=== PATIENT | male | born 1985 | race Caucasian/White ===

== ENCOUNTER 2018-03-21 13:31 | Emergency (ER) | payer BC, MEDICARE, MEDICAID ==
--- OUTSIDE RECORDS SUMMARY | 2018-03-21 13:48 | XMS REPORT ---
:1985 External Reference #:[id number] Author Organization [facility] Address [address] [place] [address] Phone [phone] Care Team Providers Name Role Phone Migue Calderon MD Care Team Information Online Education Manager Unavailable Migue Calderon MD Primary Care Physician Unavailable Payers Type Date Identification Numbers Payment Provider Subscriber Commercial Effective: Policy Number: [place] Plan Juanito Brown Jean Carlos 2003 [id number] PayID: [id number] [address] [place] [address] Medigap Part B Effective: Policy Number: Medicare Juanito Moore 2013 [id number] [facility] Jean Carlos PayID: [id number] [address] [place] [address] Medicaid Effective: 2011 Policy Number: Medicaid [place] Juanito Evangelista [id number] Group Name: Medicaid [address] PayID: [id number] [facility] [place] [address] Problems Date Description Provider Status Onset: 12/11/2010 Cerebral degeneration Migue Calderon M.D. Active Onset: 08/04/2011 Acute bronchitis Cha Aguero M.D. Active Onset: 08/04/2011 Impacted cerumen Cha Aguero M.D. Active Onset: 08/04/2011 Flatulence, eructation and gas Cha Aguero M.D. Active pain Onset: 12/08/2011 Gastroesophageal reflux disease Migue Calderon M.D. Active Onset: 05/15/2013 Carbuncle of face Robert Wilson M.D. Active Onset: 12/08/2013 Congenital anomaly of stomach Migue Calderon M.D. Active Onset: 10/06/2014 Achalasia of esophagus Migue Calderon M.D. Active Onset: 04/21/2014 Inguinal hernia without Migue Calderon M.D. Active obstruction AND without gangrene Family History Date Family Member(s) Problem(s) Comments Father Hypertension Social History Type Date Description Comments Living Situation Lives in an assisted living facility Cigarette Use Never Smoked Cigarettes Allergies, Adverse Reactions, Alerts Date Description Reaction Status Severity Comments 10/31/2010 NKDA active Medications Medication Date Status Form Strength Qnty SIG Indications Ordering Provider Miralax 01/25 Active Powder 527gm 527un dissolve its (10cc) in Shallish, 8 oz of M.D. fluid drink with breakfast daily constipati on Fleet Enema 12/14 Active Enema 7-19GM/11 690ml Use one Elana C. 8ML enema robert Suh per CRAB BUTCHER rectum; repeat dose in 2 days and 4 days Prilosec OTC 08/[address] 20mg 30tab Take One Josh T. s Capsule By Jennie villalobos MD before breakfast. Glycerin Adult 09/11 Active Suppository 2gm 30uni 1 rectally ts prn for Shallish, constipati M.D. on Lanolin Hpa 09/01 Active 40uni Apply To ts Lips After Shallish, Breakfast M.D. And AT Mid Morning, After Lunch,Afte r Nap, Mid Afternoon, And After Dinner(May Kept By Bedside) Valtrex 05/10 Active Tablets 500mg 14tab 1 po bid Migue s for 7 days Shallish, M.D. Acetaminophen 05/04 Active Solution 160mg/5ML 1unit 2 tsp po s q4h prn Shallish, fever , M.D. pain Benadryl 1% Cre 02/10 Active 30uni Apply To ts Affected [facility] Area 3 M.D. Times A Day as Needed (Itching) Robitussin DM Active 473un 10MLS By Migue F. Syp 480ML /2015 its Mouth Shallish, Every 4 M.D. Hours as Needed For Cough Sudafed 12 Hour Active Tablets ER 120mg 30tab Take 1 Migue F. 12HR s tablet by Yumiko, mouth M.D. every 12 hours as needed for stuffy nose Ibuprofen Active Tablets 400mg 60tab take 1 Elana C. s tablet by xiao Suh CRAB BUTCHER every 6 hours as needed for fever or pain Simethicone 07/07 Active Capsules 180mg 90cap Take One Josh T. s Capsule By Jennie Salvador 3 d, MD Times A Day Before First Bite Of Meals (20 Cells Day Card) (Gas) Fleet Liquid 04/10 Active Enema 5.4GM/Dos 240un one Migue F. Glycerin e its rectally Shallish, Suppositories every day M.D. as needed (hold if juanito has had a bowel movement during the day or diarrhea or illness) Certa-Brigida Active Liquid 1080m daily Migue F. / l Richard Calderon Bacitracin Active Ointment 500Unit/G apply to Unknown (External) /0000 M cut twice daily until healed. Centrum 10/31 Hx Tablets 100ta 1 by mouth Myrna Haque /2017 bs daily Maryellen Walton M.D. 03/18 Azithromycin 05/04 Hx Suspension 200mg/5ML 40cc 2.5 Migue Rec teaspoon Yumiko, - by mouth x M.D. 02/18 1d, 1.25 teaspoon by mouth for 4 days Azithromycin 05/03 Hx Tablets 250mg 6tabs take 2 tablets by Yumiko, - mouth on M.D. 02/18 day 1 1 tablet on days 2 through 5 Note 01/14 Hx may crush Judy pills due Shirley, - to Afnp-C 05/06 difficulty swallowing Valtrex 01/11 Hx Tablets 500mg 14tab 1 po bid Migue s for 7 days Yumiko - M.DAmanda 01/24 Note 12/06 Hx pt takes Migue F Resource Yumiko, - Sun,Sun,Fr M.D. 05/06 i at 7 and Magic Cup Natacha Harman,S at and Sun at 7pm Miralax 10/29 Hx Powder 527GM 527un dissolve Migue F. its (10cc) in Yumiko, - 8 oz of M.D. 01/25 drink with breakfast daily constipati on Valtrex Hx Tablets 500mg 14tab 1 po bid Migue F. s for 7 days Yumiko, - M.D. 05/17 Robitussin DM Hx Syrup 100-10mg/ 118ml 2 tsp po Migue F. 5ML q4h prn Yumiko, - M.D. 05/06 Pseudoephedrine Hx 30uni Take One Migue F. 30MG ts Tablet By Yumiko, - Mouth M.D. 05/06 Every Hours as Needed For Cold Symptoms Valtrex 10/06 Hx Tablets 500mg 10tab 1 po bid Migue F. s for 5 days Yumiko, - M.D. 10/16 Benadryl Itch 07/15 Hx Cream 1-0.1% 1tube apply to Nara affected Curtis, - area three M.D. 05/06 times day as needed Valacyclovir HCL 06/15 Hx Tablets 500mg 8tabs take 2 Austin tablets by Puneet, - mouth two M.D. 06/17 times day for 2 days as needed for cold sore Note 04/25 Hx discontinu Migue F. e Lotrimin Yumiko, - M.D. 05/02 Resource 2.0 04/17 Hx Liquid 4Case as needed R63.4 Migue F. /2014 s to Yumiko, - supplement M.D. 05/06 G31.9 Simethicone 04/06/2014 Hx Suspension 40mg/0.6ML 30ml .6 by mouth Migue F. - after meals as Yumiko, 07/07/2014 needed M.D. discontinue Mylicon 02/03/2014 Hx Suspension 40mg/0.6ML 1Bott .6ml by mouth Migue F. - le after meals as Yumiko, 04/06/2014 needed M.D. Acetaminophen-Co 01/15/2014 Hx Tablets 300-30mg 120ta 1 by mouth Migue valenzuela #3 - bs every 4 hours [facility], 08/24/2014 M.D. Metoclopramide 01/03/2014 Hx Solution 10mg/10ML qid Nara HCL - Curtis, 08/24/2014 M.D. Prilosec 01/03/[address] 40mg 30cap Take One Migue F. - s Capsule By [facility], 05/06/2017 Mouth With M.D. Breakfast (GERD/Acid) Note 12/18/2013 Hx Physical Migue F. - assessment [facility], 05/02/2014 needed and M.D. management clinic to be assessed for a new seating system Erythromycin 12/12/[address] Harvey 250mg Discontinue Migue F. Base - [facility], 12/25/2013 M.D. Mylanta Gas 11/28/2013 Hx Capsules 125mg 2 po tid Migue F. Relief Maximum - [facility], Strength 08/24/2014 M.D. Orders 11/28/2013 Hx Reposition Migue F. - patient q1hr [facility], 05/02/2014 between 8am and M.D. 8pm Mylanta 2 tabs or 1 oz of the liquid Mylanta tid Ibuprophen 400mg tid Note 11/27/2013 Hx use fleet enema Migue F. - only prn - pt [facility], 05/06/2017 needs to have M.D. bowel movement at least q2days Mineral Oil 11/24/2013 Hx Oil 500ml 30cc daily Migue F. Heavy - [facility], 05/02/2014 M.D. Fleet Enema 11/20/2013 Hx Enema 7-19GM/118M 3unit 1 per day for Migue F. - L s next 3 days [facility], 05/06/2017 M.D. High Calorie 11/13/2013 Hx Migue F. Supplement - [facility], 05/02/2014 M.D. Tramadol HCL 11/11/2013 Hx Tablets 50mg 40tab 1 po q6h prn, Migue F. - s and 1 po with [facility], 08/24/2014 evening M.D. medication Omeprazole 11/11/[address] 40mg 30cap 1 po qd Migue F. - s [facility], 12/08/2013 M.D. Pseudoephedrine 10/18/2013 Hx 30uni Take One Tablet Migue F. 30MG Tab - ts By Mouth [facility], 10/16/2014 4 Hours as M.D. Needed For Cold Symptoms Orajel 10% 10/18/2013 Hx Gel 7.0GM 7unit Apply To Lower Migue F. - s Right [place] [facility], 05/02/2014 Tooth as Needed M.D. Robitussin DM 10/18/2013 Hx 473un 10MLS By Mouth Migue F. Syp 480ML - its Every 4 Hours [facility], 10/16/2014 as Needed For M.D. Cough Without Fever Lamisil At 10/18/2013 Hx Cream 1% 30uni Apply To Web Migue F. - ts Spaces Of Feet [facility], 05/06/2017 as Needed For M.D. Redness After Bath (Antifungal) Acetaminophen/Co 08/25/2013 Hx Solution 120-12mg/5M 118ml Take 10 ml by Ada Gastelum mouth every 4 Isaac, 11/11/2013 hours as needed QUARTZ MINER for pain Physical Therapy 07/27/2013 Hx treatment and Migue F. - evaluation [facility], 11/11/2013 cerebral M.D. palsey, leg spasticity Afo Braces 07/09/2013 Hx needs repair Migue F. - [facility], 05/02/2014 M.D. Mupirocin 05/15/2013 Hx Cream 2% 30gm apply tid to 6 Robert T. - affected area 8 [place], 12/08/2013 until clear 0 M.D. . 0 Sulfamethoxazole 05/02/2013 Hx Tablets 800-160mg 20tab 1 po bid x 10 6 Janette /Trimethoprim DS - s days 8 Manish, 05/12/2013 0 Afnp-C . 0 Lanolin 03/26/2013 Hx Ointment 1unit apply to lips Migue F. - s daily as needed [facility], 12/08/2013 M.D. Note 09/16/2012 Hx physical Migue F. - therapy Yumiko, 10/11/2012 assessment M.D. Note 09/16/2012 Hx physical Migue F. - therapy [facility], 10/11/2012 assessment for M.D. evaluation of new wheelchair Orabase-B 06/07/2012 Hx Paste 20% Migue Mendez - [facility], 07/04/2013 M.Abbe Triamcinolone In 06/07/2012 Hx Paste 0.1% 5gm apply tid until Migue FAmanda Orabase - lip sore is [facility], 05/06/2017 healed M.DAmanda Acetaminophen/Co 02/29/2012 Hx Tablets 300-30mg 30tab 1-2 po q4h prn Migue FAmanda deine #3 - s [facility], 08/25/2013 M.D. Centrum 12/27/2011 Hx Chewtabs 30uni Take One Tablet Migue F. - ts By Mouth Every [facility], 05/06/2017 Evening With M.DAmanda Dinner-Crush Med (Supplement) Note 12/25/2011 Hx pt may received Migue F. - AFO's dx: [facility], 10/11/2012 331.9 during M.D. weight barring activites up to an hour Ranitidine HCL 12/08/2011 Hx Capsules 150mg 60cap take 1 capsule Migue F. - s by mouth twice [facility], 11/11/2013 a day M.D. Handicapped 12/06/2011 Hx requires Migue Mendez Parking - handicapped [facility], 12/08/2011 parking M.D. dx: cerebral palsey lifelong Wheelchair 12/06/2011 Hx Migue FAmanda Repairs - [facility], 12/08/2011 M.DAmanda Wheelcair Repair 08/19/2011 Hx repair Migue FAmanda - wheelchair as [facility], 12/08/2011 needed M.Abbe Orajel 08/04/2011 Hx Gel 10% 7.0gm apply prn [facility], 10/18/2013 MLuke Azithromycin 08/04/2011 Hx Tablets 250mg 6tabs 2 tabs po x 1 Cha D. - day, then 1 tab [place], 12/08/2011 po qd x 4 days M.DAmanda Debrox 08/04/2011 Hx Solution 6.5% 1bott use per nurse Migue corbett [facility], 12/08/2013 M.D. Wheelcair Repair 05/31/2011 Hx repair Austin A. - wheelchair as [place], 06/05/2011 needed M.D. Azithromycin 05/23/2011 Hx Tablets 250mg 6tabs take 2 tablets Migue F. - by mouth on day Shallish, 05/29/2011 1 then 1 tablet M.D. on days 2 through 5 Azithromycin 09/05/2010 Hx Tablets 500mg 10tab 1 po daily x 7 Myrna L. - s 10. 8 Anton, 09/05/2010 6 M.D. . 2 Azithromycin 09/05/2010 Hx Tablets 250mg 20tab 2 po x 10 day 7 Myrna L. - s 8 Anton, 10/31/2010 6 M.D. . 2 Acidophilus 09/05/2010 Hx Capsules 60cap 2 po daily 7 Myrna L. - s 8 Anton, 12/05/2010 6 M.D. . 2 Zithromax 06/06/2010 Hx Tablets 250mg 6Tabs 2 po qd today , Migue F. - then 1 po qd Shallish, 07/22/2010 times 4 M.D. Cephalexin 01/21/2010 Hx Suspension 250mg/5ML 200ml 2 tsp po bid Migue F. - Rec [facility], 01/30/2010 M.D. Bactroban 01/21/2010 Hx Ointment 2% 22gm apply Bid to Migue F. - affected area [facility], 10/16/2014 M.D. Wheelchair 11/22/2009 Hx Migue F. Assessment And - Shallish, Repair 07/22/2010 M.D. Foam Seat 11/22/2009 Hx Migue F. Cushion - [facility], 07/22/2010 M.D. Bactrim DS 08/03/2009 Hx Tablets 800-160mg 10tab 1 po bid for 5 Li M. - s days [place], 10/15/2009 M.D. Levaquin 08/02/2009 Hx Tablets 500mg 7tabs 1 po qd for 7 7 Li M. - days 8 [place], 10/15/2009 0 M.D. . 6 0 Wheelchair 02/02/2009 Hx Migue F. Assessment And - Shallish, Repair 05/03/2009 M.D. Enema Fleets 09/10/2008 Hx Enema 1unit use as directed Migue F. - s Shallish, 09/05/2010 M.D. Zithromax 05/13/2008 Hx Tablets 250mg 6Tabs 2 po qd today , Daily - then 1 po qd [place], 07/27/2008 times 4 M.D. Annual PPD 04/20/2008 Hx Migue F. - [facility], 07/22/2010 M.D. Fleets Liquid 05/16/2007 Hx Suppository 30uni 1 pr qd hold Migue F. Glycerin - ts for diarrhea or Shallish, Suppository 08/24/2014 illness or if M.D. PT has BM during the day Hydrocortisone 05/14/2007 Hx Ointment 0.1% 30gm Apply qid prn Migue F. - To Lips Until Shallish, 05/14/2007 Healed M.D. Hydrocortisone 05/14/2007 Hx Ointment 1% 30gm Apply To Lips Migue F. - qid prn Until [facility], 12/08/2013 Healed M.D. Novasource 2.0 05/10/2007 Hx Liquid 2.0 60uni 1 po bid Migue F. - ts [facility], 09/05/2010 PA # M.Yancy. [id number]. Audiology 04/16/2007 Hx evaluate for Migue F. Evaluation - hearing loss [facility], 04/22/2007 M.D. Offer Liquid 04/08/2007 Hx every 2 hours Migue F. Frequently - while awake, [facility], 07/27/2008 and at hs M.D. Fleets Glycerin 04/08/2007 Hx Supp 30uni insert 1 per Migue F. Suppository - ts rectum [facility], 04/22/2007 everyday, hold M.D. for diarrhea Repostion 04/08/2007 Hx every 2 hours Migue F. - while awake [facility], 05/03/2009 M.D. Pseudoephedrine 03/26/2007 Hx Tablets 30mg 30tab 1 tab by mouth Migue F. HCL - s q4hrs prn for Shallish, 10/18/2013 cold symptoms M.D. Sensi-Care 03/26/2007 Hx 30gm Appy To Areas Migue F. Protective - Of Skin Shallish, Barrier 08/06/2009 Breakdown M.D. W/Each Attends Change as Needed Guiatuss DM 03/26/2007 Hx Syrup 55413/5ML 480ml 10MLS By Mouth Migue F. - Q4HRS as Needed [facility], 12/08/2013 For Cough M.D. Without Fever Ibuprofen 03/26/2007 Hx Capsules 200mg 120ca 2 tabs by mouth Migue F. - ps three times a [facility], 06/16/2014 day M.D. Fleets Glycerin 03/26/2007 Hx Supp 30uni Insert 1 Per Migue F. Suppository - ts Rectum Everyday [facility], 05/15/2007 For M.D. Constipation Lamisil At 03/26/2007 Hx Cream 30Gra Apply To Web Migue F. - ms Spaces Of Feet [facility], 08/06/2009 Everyday After M.D. Bath Bacitracin Oint 03/26/2007 Hx Oint 30gm Apply To Small Migue F. - Cuts Or Wounds [facility], 05/23/2011 as Needed M.D. A & D Ointment 03/26/2007 Hx Ointment 30gm Apply as Needed Migue F. - To Dy Lips [facility], 12/08/2013 M.D. Novasource 3.0 03/26/2007 Hx 2Case 1 Can bid for Migue F. - s supplementation [facility], 05/10/2007 Prior M.D. Auth # [id number] May Give Meds 03/26/2007 Hx Migue F. Late On Weekends - [facility], 07/27/2008 M.D. Swallowing 03/26/2007 Hx Migue F. Evaluation - [facility], 04/22/2007 M.D. Tilt In Space 03/22/2007 Hx Migue F. Wheelchair - [facility], 04/22/2007 M.D. Polyethelene 02/15/2007 Hx 1Bott 1 Capful Daily Migue F. Glycol - le [facility], 07/27/2008 M.D. Tylenol 02/15/2007 Hx Tablets 325mg 100ta 2 by mouth Migue F. - bs every 6 hours [facility], 05/06/2017 as needed for M.D. fever above 100.4 Zithromax 06/19/2006 Hx Tablets 250mg 1tabs 2 po qd today , Migue F. - then 1 po qd Shallish, 12/18/2006 times 4 M.D. Dilliner Bathing 05/20/2006 Hx needs repairs- Migue F. System - Shallish, 02/15/2007 please Richard evaluate and perfrom needed repairs Bed Pads 12/21/2005 Hx 3unit large washable Migue F. - s Shallish, 02/15/2007 dx: M.D. cerebral palsy duration life Chair Pads 12/21/2005 Hx 3unit Large Washable Migue F. - s Chair Pads Shallish, 02/15/2007 DX : M.D. CP Duration: Life Disposable Under 12/21/2005 Hx 2Bags large Migue F. Pads - Shallish, 02/15/2007 dx; cp M.D. duration: life Disposable Under 12/21/2005 Hx 60uni small Migue F. Pads - ts disposoable Shallish, 02/15/2007 underpads M.D. dx: cp duration: life Prebail Diapers 09/04/2005 Hx Adult Small 192un as directed Migue F. - its Shallish, 02/15/2007 M.D. Liners 09/04/2005 Hx 200un as directed Migue F. - its Shallish, 02/15/2007 M.D. Protonix 07/24/2005 Hx Pill 40mg 60uni 1 po bid Migue F. - ts Shallish, 04/20/2008 M.D. Carafate 07/24/2005 Hx Suspension 1GM/10 ML 1200m 10 ml po tid Migue F. - l Shallish, 07/27/2008 M.DAmanda Miralax 07/24/2005 Hx Powder 527gm 17 GM In 8 Oz Family - H2o 1-2 Times Medicine 02/15/2007 Daily as Needed [facility] Constipation Lortab 07/24/2005 Hx Elixir 2.5mg;167mg 10cc PO Q 4 HRS Family - /5ML prn Medicine 02/15/2007 [facility] Omeprazole Hx Capsules DR 20mg 30cap 1 po qd Migue F. - s Shallish, 12/08/2011 M.D. Note Hx Please Give PT Migue F. - Flu Shot Shallish, 08/06/2009 Richard Acyclovir Hx Tablets 400mg take 1 tablet Unknown - by mouth two 12/08/2013 times a day x 10 days Baclofen Hx Tablets 10mg 1 by mouth Unknown - three times a 12/08/2013 day Miralax Hx Packet [id number] 1bott 17 grams every Migue F. - day as directed Yumiko 10/30/2015 Richard Medications Administered in Office Medication Date Status Form Strength Qnty SIG Indications Ordering Provider TB Intradermal Administered Injection Unknown Test 010 TB Intradermal Administered Injection Migue F. Test 008 Richard Calderon Immunizations CPT Code Status Date Vaccine Lot # [id number] Given 12/19/2017 Influenza Vac, Quadriv[place], [place] [address] Given 01/11/2016 Influenza Vac, [place]riv[place], [place] [address] Given 12/26/2014 Influenza Vac, [place]riv[place] [address] Given 12/09/2013 DO Not Use Split Influenza Virus Vaccine 72775 Given 12/08/2011 DO Not Use Split Influenza Virus Vaccine [id number] 61127 Given 12/05/2010 Pneumococcal Immunization [id number] 07325 Given 12/05/2010 DO Not Use Split Influenza Virus Vaccine [id number] 64740 Given 01/29/2009 H1N1 Immunization Intramuscular/Intranasal W Counseling 54639 Given 01/29/2009 H1N1 Virus Vaccine [id number] 25697 Given 12/31/2008 DO Not Use Split Influenza Virus Vaccine 96371 Given 12/28/2008 DO Not Use Split Influenza Virus Vaccine 95074 Given 12/30/2007 DO Not Use Split Influenza Virus Vaccine [id number] 77760 Given 10/24/2007 Tdap Tetanus, W Pertussis [id number] 70248 Given 09/15/1996 Hepatitis B Immunization, [place]-19 Years 28202 Given 10/25/1995 Hepatitis B Immunization, [place]-19 Years 91959 Given 09/17/1995 DT Immunization 96045 Given 09/17/1995 (IPV) Inactive Poliovirus Vaccine 57801 Given 09/17/1995 Varicella (Chicken Pox) Immunization 14310 Given 09/17/1995 Hepatitis B Immunization, [place]-19 Years 65982 Given 06/11/1992 (IPV) Inactive Poliovirus Vaccine 19760 Given 06/11/1992 MMR Virus Immunization 04660 Given 06/11/1992 DTP Immunization 78623 Given 11/07/1990 MMR Virus Immunization 83128 Given 11/07/1990 DTP Immunization 32581 Given 11/07/1990 (Hib) Hemoplilus Influenza B 44761 Given 1987 DTP Immunization 74590 Given 1987 (IPV) Inactive Poliovirus Vaccine 39521 Given 1987 DTP Immunization 76893 Given 1987 (IPV) Inactive Poliovirus Vaccine 70305 Given 1987 DTP Immunization Vital Signs Date Vital Result Comment 03/18/2018 BP Systolic 130 mmHg BP Diastolic 86 mmHg Heart Rate 100 /min Body Temperature 99.0 F O2 % BldC Oximetry 96 % 12/14/2017 BP Systolic 102 mmHg BP Diastolic 70 mmHg Heart Rate 68 /min Body Temperature 98.6 F Respiratory Rate 16 /min 05/07/2017 BP Systolic 100 mmHg BP Diastolic 60 mmHg Heart Rate 66 /min Body Temperature 99.1 F Height 60 inches 5'0" Weight 74.25 lb BMI (Body Mass Index) 14.5 kg/m2 02/19/2017 BP Systolic 90 mmHg BP Diastolic 50 mmHg Heart Rate 96 /min Body Temperature 97.9 F 05/03/2016 BP Systolic 110 mmHg BP Diastolic 74 mmHg Heart Rate 68 /min Body Temperature 100.4 F Respiratory Rate 20 /min Weight 75.19 lb home stated 04/26/2015 BP Systolic 116 mmHg BP Diastolic 82 mmHg Heart Rate 72 /min Respiratory Rate 20 /min Weight 76.00 lb 10/16/2014 BP Systolic 112 mmHg BP Diastolic 74 mmHg Heart Rate 92 /min Body Temperature 98.2 F Respiratory Rate 20 /min Weight 71.00 lb 10/06/2014 Heart Rate 104 /min Body Temperature 98.3 F Respiratory Rate 20 /min 08/24/2014 Heart Rate 80 /min Body Temperature 97.0 F Respiratory Rate 20 /min 04/21/2014 Heart Rate 78 /min Body Temperature 98.5 F Weight 67.00 lb 01/03/2014 Heart Rate 120 /min Body Temperature 98.8 F Respiratory Rate 16 /min 12/08/2013 BP Systolic 98 mmHg BP Diastolic 70 mmHg Heart Rate 64 /min Body Temperature 98.3 F Respiratory Rate 16 /min 11/24/2013 BP Systolic 100 mmHg BP Diastolic 72 mmHg Heart Rate 88 /min Body Temperature 98.5 F Respiratory Rate 18 /min 11/21/2013 BP Systolic 126 mmHg BP Diastolic 82 mmHg Heart Rate 88 /min Body Temperature 99.7 F Respiratory Rate 18 /min Weight 70.50 lb 11/11/2013 BP Systolic 86 mmHg BP Diastolic 56 mmHg Heart Rate 64 /min Body Temperature 97.8 F Weight 72.12 lb weighed on 10/31/16 at [facility] 08/25/2013 BP Systolic 88 mmHg BP Diastolic 56 mmHg Heart Rate 56 /min Body Temperature 98.7 F Respiratory Rate 18 /min Weight 77.25 lb 07/04/2013 BP Systolic 100 mmHg BP Diastolic 64 mmHg Body Temperature 97.5 F Weight 79.38 lb stated 05/15/2013 BP Systolic 110 mmHg BP Diastolic 60 mmHg Heart Rate 80 /min Body Temperature 97.6 F Height 60 inches 5'0" 01/03/2013 Heart Rate 94 /min Body Temperature 97.8 F Respiratory Rate 16 /min Height 60 inches 5'0" Weight 85.00 lb as of nov 2012 BMI (Body Mass Index) 16.6 kg/m2 06/07/2012 BP Systolic 100 mmHg BP Diastolic 64 mmHg Heart Rate 78 /min Body Temperature 97.2 F 12/08/2011 BP Systolic 100 mmHg BP Diastolic 60 mmHg Heart Rate 88 /min Body Temperature 98.6 F Height 60 inches 5'0" Weight 77.38 lb BMI (Body Mass Index) 15.1 kg/m2 08/04/2011 Heart Rate 78 /min Body Temperature 98.0 F Height 60 inches 5'0" Weight 75.00 lb BMI (Body Mass Index) 14.6 kg/m2 07/21/2011 Heart Rate 80 /min Body Temperature 98.3 F Respiratory Rate 18 /min Height 60 inches 5'0" Weight 77.00 lb BMI (Body Mass Index) 15.0 kg/m2 06/05/2011 BP Systolic 118 mmHg BP Diastolic 80 mmHg Heart Rate 78 /min Body Temperature 97.7 F Respiratory Rate 22 /min Height 60 inches 5'0" 05/23/2011 BP Systolic 98 mmHg BP Diastolic 60 mmHg Heart Rate 88 /min Body Temperature 99.4 F Height 60 inches 5'0" 12/05/2010 BP Systolic 94 mmHg BP Diastolic 62 mmHg Heart Rate 84 /min Height 60 inches 5'0" Weight 78.00 lb BMI (Body Mass Index) 15.2 kg/m2 10/31/2010 BP Systolic 100 mmHg BP Diastolic 70 mmHg Heart Rate 60 /min Body Temperature 97.8 F Weight 77.00 lb 09/05/2010 BP Systolic 122 mmHg BP Diastolic 68 mmHg Heart Rate 88 /min Body Temperature 97.7 F Height 60 inches 5'0" 07/22/2010 BP Systolic 102 mmHg BP Diastolic 74 mmHg Heart Rate 60 /min Body Temperature 98.0 F Height 60 inches 5'0" BMI (Body Mass Index) 191.4 kg/m2 06/06/2010 BP Systolic 96 mmHg BP Diastolic 62 mmHg Heart Rate 90 /min Body Temperature 97.9 F Height 60 inches 5'0" 01/21/2010 BP Systolic 92 mmHg BP Diastolic 60 mmHg Heart Rate 80 /min Body Temperature 97.2 F Weight 79.00 lb stated 10/15/2009 BP Systolic 90 mmHg BP Diastolic 60 mmHg Heart Rate 78 /min Body Temperature 98.4 F Height 60 inches 5'0" 08/06/2009 BP Systolic 90 mmHg BP Diastolic 60 mmHg Heart Rate 80 /min Body Temperature 98.1 F Weight 82.00 lb Per staff - done at home 08/02/2009 BP Systolic 90 mmHg BP Diastolic 50 mmHg Heart Rate 80 /min Body Temperature 100.7 F O2 % BldC Oximetry 98 % Height 60 inches 5'0" Weight 80.00 lb BMI (Body Mass Index) 15.6 kg/m2 05/03/2009 Heart Rate 76 /min Body Temperature 97.8 F 01/29/2009 BP Systolic 96 mmHg BP Diastolic 60 mmHg Heart Rate 76 /min Body Temperature 97.7 F 07/27/2008 BP Systolic 98 mmHg BP Diastolic 60 mmHg Heart Rate 72 /min Body Temperature 97.0 F Respiratory Rate 16 /min 05/13/2008 BP Systolic 100 mmHg BP Diastolic 60 mmHg Heart Rate 88 /min Body Temperature 98.5 F 04/20/2008 BP Systolic 100 mmHg BP Diastolic 70 mmHg Heart Rate 84 /min Body Temperature 98.7 F Respiratory Rate 20 /min 01/24/2008 BP Systolic 115 mmHg BP Diastolic 80 mmHg Heart Rate 72 /min Body Temperature 97.8 F Respiratory Rate 20 /min O2 % BldC Oximetry 91 % 12/30/2007 BP Systolic 104 mmHg BP Diastolic 60 mmHg Heart Rate 80 /min Body Temperature 97.4 F 03/26/2007 BP Systolic 92 mmHg BP Diastolic 60 mmHg Heart Rate 74 /min Height 60 inches 5'0" Weight 66.00 lb BMI (Body Mass Index) 12.9 kg/m2 07/24/2005 BP Systolic 84 mmHg BP Diastolic 60 mmHg Heart Rate 72 /min Weight 64.00 lb Father Held PT To Get Weight Weight Percentile <5th Results Test Date Test Result H/L Range Note CBC Electronic Fma 05/07/2017 WBC 4.1 x10^3/UL 4.0-10.0 RBC 4.73 x10^6/UL 3.93-6.00 HGB 13.8 g/dL 12.0-17.0 HCT 41 % 35-50 MCV 86.0 fL 80.0-95.0 MCH 29.2 pg 25.6-32.2 MCHC 33.9 g/dL 32.2-36.0 RDW-CV 12.2 % 11.6-14.4 PLT 208 x10^3/UL 163-400 MPV 10.0 fL 9.4-12.4 Lachelle# 1.59 x10^3/UL 1.56-6.13 Lymph# 1.85 x10^3/UL 1.18-3.74 Castro# 0.53 x10^3/UL 0.24-0.82 Eos # 0.1 x10^3/UL 0.0-0.5 Baso # 0.01 x10^3/UL 0.01-0.08 Lachelle% 38.9 % 34.0-70.0 Lymph % 45.2 % 20.0-52.0 Castro% 13.0 % High 5.0-12.0 1 Eos% 2.7 % 0.7-7.0 Baso% 0.2 % 0.1-1.2 Comprehensive Metabolic Prof 05/07/2017 Sodium 144 mEq/L 134-149 Potassium 4.4 mEq/L 3.6-5.5 Chloride 99 mEq/L 94-112 Carbon Dioxide 23 mEq/L 21-32 Glucose 75 mg/dL 70-105 BUN 16 mg/dL 6-26 Creatinine 0.5 mg/dL Low 0.6-1.4 2 BUN/Creat Ratio 32.0 CALC 8.0-36.0 Calcium 9.2 mg/dL 8.6-10.2 Total Protein 7.5 g/dL 6.4-8.3 Albumin 4.3 g/dL 3.8-5.5 Globulin 3.2 g/dL 2.0-4.8 A/G Ratio 1.3 CALC 0.6-2.3 Alk. Phosphatase 80 U/L 22-95 Alt (SGPT) 14 U/L 7-35 Ast (Sgot) 19 U/L 5-34 Total Bilirubin 0.3 mg/dL 0.2-1.3 GFR Non- >60 ml/min/1.73m^ >=60 GFR >60 ml/min/1.73m^ >=60 Lipid Profile 05/07/2017 Cholesterol 185 mg/dL 120-200 Triglycerides 146 mg/dL 30-200 HDL Cholesterol 49 mg/dL 30-70 LDL (Calculated) 107 CALC 0-129 VLDL Cholesterol 29 mg/dL 0-50 HDL Risk Factor 3.8 CALC 0.0-4.4 Laboratory test finding 05/07/2017 TSH 2.34 mIU/L 0.50-6.00 Influenza A&B-fma 05/03/2016 Influenza A neg Influenza B neg CBC With Differential/Platelet 04/26/2015 WBC 8.6 x10E3/uL 3.4-10.8 3 RBC 4.88 x10E6/uL 4.14-5.80 3 Hemoglobin 13.6 g/dL 12.6-17.7 3 Hematocrit 41.6 % 37.5-51.0 3 MCV 85 fL 79-97 3 MCH 27.9 pg 26.6-33.0 3 MCHC 32.7 g/dL 31.5-35.7 3 RDW 13.9 % 12.3-15.4 3 Platelets 294 x10E3/uL 150-379 3 Neutrophils 53 % 3 Lymphs 36 % 3 Monocytes 8 % 3 Eos 3 % 3 Basos 0 % 3 Immature Cells TNP 3 Neutrophils (Absolute) 4.6 x10E3/uL 1.4-7.0 3 Lymphs (Absolute) 3.1 x10E3/uL 0.7-3.1 3 Monocytes(Absolute) 0.7 x10E3/uL 0.1-0.9 3 Eos (Absolute) 0.2 x10E3/uL 0.0-0.4 3 Baso (Absolute) 0.0 x10E3/uL 0.0-0.2 3 Immature Granulocytes 0 % 3 Immature Grans (Abs) 0.0 x10E3/uL 0.0-0.1 3 NRBC TNP 3 Hematology Comments: TNP 3 Comp. Metabolic Panel (14) 04/26/2015 Glucose, Serum 82 mg/dL 65-99 3 BUN 15 mg/dL 6-20 3 Creatinine, Serum 0.60 mg/dL Low 0.76-1.27 3 eGFR If NonAfricn Am 137 mL/min/1.73 >59 3 eGFR If Africn Am 158 mL/min/1.73 >59 3 BUN/Creatinine Ratio 25 High 8-19 3 Sodium, Serum 141 mmol/L 134-144 3 Potassium, Serum 4.8 mmol/L 3.5-5.2 3 Chloride, Serum 103 mmol/L 97-108 3 Carbon Dioxide, Total 24 mmol/L 18-29 3 Calcium, Serum 9.1 mg/dL 8.7-10.2 3 Protein, Total, Serum 6.9 g/dL 6.0-8.5 3 Albumin, Serum 4.3 g/dL 3.5-5.5 3 Globulin, Total 2.6 g/dL 1.5-4.5 3 A/G Ratio 1.7 1.1-2.5 3 Bilirubin, Total 0.2 mg/dL 0.0-1.2 3 Alkaline Phosphatase, S 92 IU/L 39-117 3 Ast (Sgot) 15 IU/L 0-40 3 Alt (SGPT) 15 IU/L 0-44 3 Laboratory test finding 04/26/2015 Thyroxine (T4) Free, 1.39 ng/dL 0.82- 1.77 3 Direct, S TSH 1.580 uIU/mL 0.450-4.500 3 CBC Electronic (Fma) 11/11/2013 WBC 7.4 3.6-9.6 RBC 4.76 3.90-5.70 Hemoglobin (Fma/CMC/CTX) 14.0 g/dL 12.1 - 17.2 Hematocrit (Fma/CMC/CTX) 40.8 % 36.1 - 50.3 Platelets 292 10^3/ul 150-400 Lymph% 34.4 % 17.0-48.0 Mixed% 3.0 Neutrophils % 62.6 Mean Corpuscular Vol 86 82.2-97.4 Mean Corpuscular Hemoglobin 29.4 27.6-33.3 Mean Corpuscular Hemo Concen 34.3 32.0-36.0 RDW 12.3 11.6-13.7 Mean Platelet Volume 6.9 5.5-11.0 Comprehensive Metabolic Prof 11/11/2013 Sodium 145 mEq/L 134-149 Potassium 4.2 mEq/L 3.6-5.5 Chloride 98 mEq/L 94-112 Carbon Dioxide 26 mEq/L 21-32 Glucose 98 mg/dL 70-105 BUN 17 mg/dL 6-26 Creatinine 0.5 mg/dL Low 0.6-1.4 4 BUN/Creat Ratio 34.0 CALC 8.0-36.0 Calcium 9.9 mg/dL 8.6-10.2 Total Protein 8.1 g/dL 6.3-8.1 Albumin 4.7 g/dL 3.8-5.5 Globulin 3.4 g/dL 2.0-4.8 A/G Ratio 1.4 CALC 0.6-2.3 Alk. Phosphatase 90 U/L 22-95 Alt (SGPT) 32 U/L 7-35 Ast (Sgot) 22 U/L 5-34 Total Bilirubin 0.4 mg/dL 0.2-1.3 Laboratory test finding 11/11/2013 Free T4 1.10 ng/dL 0.75-1.54 TSH 2.18 mIU/L 0.50-6.00 Laboratory test 11/11/2013 Sed Rate (Fma/CMC/Centrex) 10MM finding CBC Auto Diff 10/19/2013 White Blood Count 9.5 10^3/uL 4.8-10.8 Red Blood Count 4.96 10^6/uL 4.0-5.4 Hemoglobin 14.4 g/dL 14.0-18.0 Hematocrit 42 % 42-52 Mean Corpuscular Volume 84 fL 80-94 Mean Corpuscular Hemoglobin 29 pg 27-31 Mean Corpuscular HGB Conc 35 g/dL 31-36 Red Cell Distribution Width 13 % 10.5-15 Platelet Count 312 10^3/uL 150-450 Mean Platelet Volume 8 um3 7.4-10.4 Abs Neutrophils 6.4 10^3/uL 1.5-7.7 Abs Lymphocytes 2.4 10^3/uL 1.0-4.8 Abs Monocytes 0.6 10^3/uL 0-0.8 Abs Eosinophils 0.1 10^3/uL 0-0.6 Abs Basophils 0 10^3/uL 0-0.2 Abs Nucleated RBC 0 10^3/uL Granulocyte % 67.3 % 38-83 Lymphocyte % 25.5 % 25-47 Monocyte % 6.0 % 1-9 Eosinophil % 1.0 % 0-6 Basophil % 0.2 % 0-2 Nucleated Red Blood Cells % 0 Laboratory test finding 10/19/2013 Lactic Acid 1.4 mmol/L 0.5-2.2 Comp Metabolic Panel 10/19/2013 Sodium 141 mmol/L 133-145 Potassium 4.2 mmol/L 3.7-5.6 Chloride 105 mmol/L 101-111 Co2 Carbon Dioxide 26 mmol/L 22-32 Anion Gap 10 mmol/L 2-11 Glucose 111 mg/dL High 70-100 Blood Urea Nitrogen 19 mg/dL 6-24 Creatinine 0.58 mg/dL Low 0.67-1.17 BUN/Creatinine Ratio 32.8 High 8-20 Calcium 9.9 mg/dL 8.6-10.3 Total Protein 8.4 g/dL 6.4-8.9 Albumin 4.7 g/dL 3.2-5.2 Globulin 3.7 g/dL 2-4 Albumin/Globulin Ratio 1.3 1-3 Total Bilirubin 0.50 mg/dL 0.2-1.0 Alkaline Phosphatase 84 U/L 34-104 Alt 20 U/L 7-52 Ast 15 U/L 13-39 Egfr Non- 169.4 >60 Egfr 217.8 >60 5 Laboratory test finding 10/19/2013 Magnesium 2.1 mg/dL 1.9-2.7 Amylase 54 U/L 29-103 Lipase 11 U/L 11.0-82.0 Troponin I 0.00 ng/mL <0.03 6 C Reactive Protein 5.55 mg/L High < 5.00 7 Urinalysis Profile 08/12/2013 Urine Color Yellow Urine Appearance Cloudy Urine Specific [place] 1.036 High 1.010-1.030 Urine pH 5.0 5-9 Urine Urobilinogen Negative Negative Urine Ketones 1+ Negative Urine Protein 1+(30 mg/dL) Negative Urine Leukocytes Negative Negative Urine Blood Negative Negative * * Negative 8 Urine Nitrite Negative Negative Urine Bilirubin Negative Negative Urine Glucose 1+(50 mg/dL) Negative Urine White Blood Cell 1+(<3/hpf) Absent Urine Red Blood Cell 2+(>3-10/hpf) Absent Urine Bacteria Absent Absent Urine Squamous Epithelial Cell Present Absent Laboratory test finding 08/12/2013 Lipase 5 U/L Low 11.0-82.0 C Reactive Protein 11.73 mg/L High < 5.00 9 CBC Auto Diff 08/12/2013 White Blood Count 16.1 10^3/uL High 4.8-10.8 Red Blood Count 5.02 10^6/uL 4.0-5.4 Hemoglobin 14.6 g/dL 14.0-18.0 Hematocrit 42 % 42-52 Mean Corpuscular Volume 84 fL 80-94 Mean Corpuscular Hemoglobin 29 pg 27-31 Mean Corpuscular HGB Conc 35 g/dL 31-36 Red Cell Distribution Width 13 % 10.5-15 Platelet Count 275 10^3/uL 150-450 Mean Platelet Volume 8 um3 7.4-10.4 Abs Neutrophils 14.2 10^3/uL High 1.5-7.7 Abs Lymphocytes 1.4 10^3/uL 1.0-4.8 Abs Monocytes 0.6 10^3/uL 0-0.8 Abs Eosinophils 0 10^3/uL 0-0.6 Abs Basophils 0 10^3/uL 0-0.2 Abs Nucleated RBC 0.01 10^3/uL Granulocyte % 87.8 % High 38-83 Lymphocyte % 8.6 % Low 25-47 Monocyte % 3.6 % 1-9 Eosinophil % 0 % 0-6 Basophil % 0 % 0-2 Nucleated Red Blood Cells % 0.1 Laboratory test finding 08/12/2013 Lactic Acid 1.3 mmol/L 0.5-2.2 Comp Metabolic Panel 08/12/2013 Sodium 139 mmol/L 133-145 Potassium 3.6 mmol/L Low 3.7-5.6 Chloride 104 mmol/L 101-111 Co2 Carbon Dioxide 24 mmol/L 22-32 Anion Gap 11 mmol/L 2-11 Glucose 152 mg/dL High 70-100 Blood Urea Nitrogen 18 mg/dL 6-24 Creatinine 0.61 mg/dL Low 0.67-1.17 BUN/Creatinine Ratio 29.5 High 8-20 Calcium 9.6 mg/dL 8.6-10.3 Total Protein 7.7 g/dL 6.4-8.9 Albumin 4.7 g/dL 3.2-5.2 Globulin 3.0 g/dL 2-4 Albumin/Globulin Ratio 1.6 1-3 Total Bilirubin 0.50 mg/dL 0.2-1.0 Alkaline Phosphatase 86 U/L 34-104 Alt 20 U/L 7-52 Ast 16 U/L 13-39 Egfr Non- 159.8 >60 Egfr 205.5 >60 10 Comp Metabolic Panel 08/11/2013 Sodium 139 mmol/L 133-145 Potassium TNP mmol/L 3.7-5.6 11 Chloride 102 mmol/L 101-111 Co2 Carbon Dioxide 27 mmol/L 22-32 Glucose 117 mg/dL High 70-100 Blood Urea Nitrogen 16 mg/dL 6-24 Creatinine 0.65 mg/dL Low 0.67-1.17 BUN/Creatinine Ratio 24.6 High 8-20 Calcium 10.0 mg/dL 8.6-10.3 Total Protein 8.2 g/dL 6.4-8.9 Albumin 5.1 g/dL 3.2-5.2 Globulin 3.1 g/dL 2-4 Albumin/Globulin Ratio 1.6 1-3 Total Bilirubin 0.40 mg/dL 0.2-1.0 Alkaline Phosphatase 86 U/L 34-104 Alt 26 U/L 7-52 Ast TNP U/L 13-39 12 Egfr Non- 148.5 >60 Egfr 191.0 >60 13 CBC Auto Diff 08/11/2013 White Blood Count 14.0 10^3/uL High 4.8-10.8 Red Blood Count 5.45 10^6/uL High 4.0-5.4 Hemoglobin 15.3 g/dL 14.0-18.0 Hematocrit 46 % 42-52 Mean Corpuscular Volume 85 fL 80-94 Mean Corpuscular Hemoglobin 28 pg 27-31 Mean Corpuscular HGB Conc 33 g/dL 31-36 Red Cell Distribution Width 13 % 10.5-15 Platelet Count 262 10^3/uL 150-450 Mean Platelet Volume 8 um3 7.4-10.4 Abs Neutrophils 12.2 10^3/uL High 1.5-7.7 Abs Lymphocytes 1.5 10^3/uL 1.0-4.8 Abs Monocytes 0.3 10^3/uL 0-0.8 Abs Eosinophils 0 10^3/uL 0-0.6 Abs Basophils 0 10^3/uL 0-0.2 Abs Nucleated RBC 0 10^3/uL Granulocyte % 87.1 % High 38-83 Lymphocyte % 10.6 % Low 25-47 Monocyte % 2.3 % 1-9 Eosinophil % 0 % 0-6 Basophil % 0 % 0-2 Nucleated Red Blood Cells % 0 Laboratory test finding 08/11/2013 Lactic Acid 1.7 mmol/L 0.5-2.2 Laboratory test finding 08/11/2013 Amylase 50 U/L 29-103 Lipase 10 U/L Low 11.0-82.0 C Reactive Protein 3.69 mg/L < 5.00 14 CBC 07/04/2013 WBC 4.9 x10E3/uL 4.3-10.9 15 RBC 4.91 x10E6/uL 4.70-6.20 15 Hemoglobin 14.0 g/dL 13.0-17.0 15 Hematocrit 42.2 % 39.0-50.0 15 MCV 85.9 fl 82.0-98.0 15 MCH 28.5 pg 27.5-33.5 15 MCHC 33.2 g/dL 32.0-36.0 15 RDW 12.8 % 11.5-14.5 15 Platelet Count 289 x10E3/uL 130-400 15 MPV 9.9 fl 8.6-12.6 15 Segmented Neutrophils 49.6 % 44.0-74.0 15 Lymphocytes 39.3 % 15.0-45.0 15 Monocytes 8.2 % 2.0-13.0 15 Eosinophils 2.7 % 0.0-6.0 15 Basophils 0.2 % 0.0-2.0 15 Neutrophil Absolute 2.4 x10E3/uL 1.4-7.0 15 Lymphocytes Absolute 1.9 x10E3/uL 1.0-3.4 15 Monocyte Absolute 0.4 x10E3/uL 0.2-1.0 15 Eosinophil Absolute 0.1 x10E3/uL 0.0-0.5 15 Basophil Absolute 0.0 x10E3/uL 0.0-0.2 15 Comprehensive Metabolic 07/04/2013 Glucose 91 mg/dL 70-100 15 BUN 18 mg/dL 5-21 15 Creatinine, Serum 0.53 mg/dL Low 0.60-1.30 15 Sodium 143 mmol/L 136-146 15 Potassium 4.7 mmol/L 3.5-5.3 15 Chloride 105 mmol/L 98-110 15 Carbon Dioxide 30 mmol/L 20-32 15 Albumin 4.7 g/dL 3.5-4.7 15 Protein, Total 7.8 g/dL 6.4-8.3 15 Calcium 9.5 mg/dL 8.4-10.4 15 Alkaline Phosphatase 104 U/L 10-118 15 Sgot (Ast) 17 U/L 3-40 15 SGPT (Alt) 22 U/L 7-50 15 Bilirubin, Total 0.30 mg/dL 0.30-1.20 15 Laboratory test finding 07/04/2013 T-4 Free 1.1 ng/dL 0.8-1.8 15 Egfr (Calculated) 07/04/2013 Estimated GFR (CALCULATED) 15 Egfr >60 15, 16 Egfr, -Swiss >60 15, 17 Laboratory test finding 07/21/2011 Quickstrep NEG Negative Throat - Beta Strep Fma neg @ 48 hrs CBC 06/05/2011 WBC 7.7 x10E3/uL 4.3-10.9 18 RBC 4.67 x10E6/uL Low 4.70-6.20 18 Hemoglobin 13.1 g/dL 13.0-17.0 18 Hematocrit 38.9 % Low 39.0-50.0 18 MCV 83.3 fl 82.0-98.0 18 MCH 28.1 pg 27.5-33.5 18 MCHC 33.7 g/dL 32.0-36.0 18 RDW 13.2 % 11.5-14.5 18 Platelet Count 340 x10E3/uL 130-400 18 MPV 10.1 fl 6.5-10.5 18 Segmented Neutrophils 52.5 % 44.0-74.0 18 Lymphocytes 38.6 % 15.0-45.0 18 Monocytes 6.9 % 2.0-13.0 18 Eosinophils 1.9 % 0.0-6.0 18 Basophils 0.1 % 0.0-2.0 18 Neutrophil Absolute 4.0 x10E3/uL 1.4-7.0 18 Lymphocytes Absolute 3.0 x10E3/uL 1.0-3.4 18 Monocyte Absolute 0.5 x10E3/uL 0.2-1.0 18 Eosinophil Absolute 0.1 x10E3/uL 0.0-0.5 18 Basophil Absolute 0.0 x10E3/uL 0.0-0.2 18 Comprehensive Metabolic 06/05/2011 Glucose 91 mg/dL 70-100 18 BUN 21 mg/dL 5-21 18 Creatinine, Serum 0.58 mg/dL Low 0.60-1.30 18 Sodium 142 mmol/L 136-146 18 Potassium 4.3 mmol/L 3.5-5.3 18 Chloride 103 mmol/L 98-110 18 Carbon Dioxide 31 mmol/L 20-32 18 Albumin 4.7 g/dL 3.5-4.7 18 Protein, Total 7.8 g/dL 6.4-8.3 18 Calcium 9.9 mg/dL 8.4-10.4 18 Alkaline Phosphatase 106 U/L 10-118 18 Sgot (Ast) 20 U/L 3-40 18 SGPT (Alt) 18 U/L 7-50 18 Bilirubin, Total 0.30 mg/dL 0.30-1.20 18 Laboratory test finding 06/05/2011 T-4 Free 1.3 ng/dL 0.8-1.8 18 Egfr (Calculated) 06/05/2011 Estimated GFR (CALCULATED) 18 Egfr >60 18, 19 Egfr, -Swiss >60 18, 20 Influenza A&B 05/23/2011 Influenza A NEG Influenza B NEG Laboratory test finding 07/22/2010 T-4 Free 1.4 ng/dL 0.8-1.8 21 Egfr (Calculated) 07/22/2010 Estimated GFR (CALCULATED) 21 Egfr >60 21, 22 Egfr, -Swiss >60 21, 23 CBC 07/22/2010 WBC 7.1 x10E3/uL 4.3-10.9 21 RBC 5.03 x10E6/uL 4.70-6.20 21 Hemoglobin 13.9 g/dL 13.0-17.0 21 Hematocrit 41.6 % 39.0-50.0 21 MCV 82.7 fl 82.0-98.0 21 MCH 27.6 pg 27.5-33.5 21 MCHC 33.4 g/dL 32.0-36.0 21 RDW 13.5 % 11.5-14.5 21 Platelet Count 266 x10E3/uL 130-400 21 MPV 10.4 fl 6.5-10.5 21 Segmented Neutrophils 50.4 % 44.0-74.0 21 Lymphocytes 39.0 % 15.0-45.0 21 Monocytes 7.2 % 2.0-13.0 21 Eosinophils 3.1 % 0.0-6.0 21 Basophils 0.3 % 0.0-2.0 21 Neutrophil Absolute 3.6 x10E3/uL 1.4-7.0 21 Lymphocytes Absolute 2.8 x10E3/uL 1.0-3.4 21 Monocyte Absolute 0.5 x10E3/uL 0.2-1.0 21 Eosinophil Absolute 0.2 x10E3/uL 0.0-0.5 21 Basophil Absolute 0.0 x10E3/uL 0.0-0.2 21 Comprehensive Metabolic 07/22/2010 Glucose 96 mg/dL 70-100 21 BUN 18 mg/dL 5-21 21 Creatinine, Serum 0.49 mg/dL Low 0.60-1.30 21 Sodium 139 mmol/L 136-146 21 Potassium 4.5 mmol/L 3.5-5.3 21 Chloride 104 mmol/L 98-110 21 Carbon Dioxide 27 mmol/L 20-32 21 Albumin 4.6 g/dL 3.5-4.7 21 Protein, Total 7.4 g/dL 6.4-8.3 21 Calcium 9.6 mg/dL 8.4-10.4 21 Alkaline Phosphatase 110 U/L 10-118 21 Sgot (Ast) 21 U/L 3-40 21 SGPT (Alt) 18 U/L 7-50 21 Bilirubin, Total 0.30 mg/dL 0.30-1.20 21 Laboratory test finding 08/03/2009 Urine Culture Mixed urethral f <SEE 24 NOTE> CBC 08/02/2009 WBC 8.8 x10E3/uL 4.3-10.9 25 RBC 5.06 x10E6/uL 4.70-6.20 25 Hemoglobin 13.9 g/dL 13.0-17.0 25 Hematocrit 41.9 % 39.0-50.0 25 MCV 82.8 fl 82.0-98.0 25 MCH 27.5 pg 27.5-33.5 25 MCHC 33.2 g/dL 32.0-36.0 25 RDW 13.6 % 11.5-14.5 25 Platelet Count 259 x10E3/uL 130-400 25 MPV 9.8 fl 6.5-10.5 25 Segmented Neutrophils 66.9 % 44.0-74.0 25 Lymphocytes 17.6 % 15.0-45.0 25 Monocytes 14.6 % High 2.0-13.0 25 Eosinophils 0.8 % 0.0-6.0 25 Basophils 0.1 % 0.0-2.0 25 Neutrophil Absolute 5.9 x10E3/uL 1.4-7.0 25 Lymphocytes Absolute 1.5 x10E3/uL 1.0-3.4 25 Monocyte Absolute 1.3 x10E3/uL High 0.2-1.0 25 Eosinophil Absolute 0.1 x10E3/uL 0.0-0.5 25 Basophil Absolute 0.0 x10E3/uL 0.0-0.2 25 Basic Metabolic Panel 08/02/2009 Glucose 97 mg/dL 70-100 25 BUN 14 mg/dL 5-21 25 Creatinine, Serum 0.57 mg/dL Low 0.60-1.30 25 Sodium 141 mmol/L 136-146 25 Potassium 4.2 mmol/L 3.5-5.3 25 Chloride 103 mmol/L 98-110 25 Carbon Dioxide 28 mmol/L 20-32 25 Calcium 9.3 mg/dL 8.4-10.4 25 GFR Calculated 08/02/2009 GFR (Calculated) >60 25, 26 Laboratory test finding 08/02/2009 Quickstrep NEGATIVE Negative Throat - Beta Strep Fma NEG@48HRS Throat-Beta Strept 06/06/2009 Throat-Beta Strep Culture NF 27 CBC 12/30/2007 WBC 6.6 x103 4.3-10.9 RBC 4.99 x106 4.70-6.20 Hemoglobin 14.4 g/dL 13.0-17.0 Hematocrit 42.2 % 39.0-50.0 MCV 84.6 fl 82.0-98.0 MCH 28.9 pg 27.5-33.5 MCHC 34.1 g/dL 32.0-36.0 RDW 13.2 % 11.5-14.5 Platelet Count 262 x103 130-400 MPV 11.2 fl High 6.5-10.5 Segmented Neutrophils 66.6 % 44.0-74.0 Lymphocytes 23.8 % 15.0-45.0 Monocytes 7.3 % 2.0-13.0 Eosinophils 2.1 % 0.0-6.0 Basophils 0.2 % 0.0-2.0 Neutrophil Absolute 4.4 x103 1.4-7.0 Lymphocytes Absolute 1.6 x103 1.0-3.4 Monocyte Absolute 0.5 x103 0.2-1.0 Eosinophil Absolute 0.1 x103 0.0-0.5 Basophil Absolute 0.0 x103 0.0-0.2 Comprehensive Metabolic 12/30/2007 Glucose 90 mg/dL 70-100 BUN 16 mg/dL 5-21 Creatinine, Serum 0.8 mg/dL 0.6-1.5 Sodium 143 mmol/L 136-146 Potassium 4.1 mmol/L 3.5-5.3 Chloride 105 mmol/L 98-110 Carbon Dioxide 24 mmol/L 20-32 Albumin 4.6 g/dL 3.5-4.7 Protein, Total 7.5 g/dL 6.4-8.3 Calcium 9.6 mg/dL 8.4-10.4 Alkaline Phosphatase 159 U/L High 10-118 Sgot (Ast) 21 U/L 3-40 SGPT (Alt) 20 U/L 7-50 Bilirubin, Total 0.40 mg/dL 0.30-1.20 Laboratory test finding 12/30/2007 TSH (Thyrotropin) 0.860 uIU/ml 0.350- 5.500 GFR (Calculated) >60 28 Throat-Beta Strept 06/02/2007 Throat-Beta Strep Culture NGNBS 29 Stool Profile 08/15/2005 Stool Card Fobt-Ict#1 NEGATIVE 07/25/05 Fobt-Ict(Fma)New (New)Fma Stool Card Fobt-Ict#2(New)Fma NEGATIVE 07/26/05 Stool Car Fobt-Ict #3(Fma)New NEGATIVE 07/27/05 Laboratory test finding 08/09/2005 [facility] Labs CLOTEST See Image Report Laboratory test finding 08/02/2005 [facility] Labs BMP;CBC;UA See Image Report CBC 07/24/2005 WBC 7.9 x103 4.3-10.9 30 RBC 4.79 x106 4.20-5.60 30 Hemoglobin 12.9 g/dL Low 13.0-17.0 30 Hematocrit 37.7 % Low 39.0-50.0 30 MCV 78.5 fl Low 82.0-98.0 30 MCH 27.0 pg Low 27.5-33.5 30 MCHC 34.3 g/dL 32.0-36.0 30 RDW 14.5 % 11.5-14.5 30 Platelet Count 383 x103 130-400 30 MPV 7.7 fl 6.5-10.5 30 Segmented Neutrophils 56.5 % 44.0-74.0 30 Lymphocytes 32.8 % 15.0-45.0 30 Monocytes 6.6 % 2.0-13.0 30 Eosinophils 3.8 % 0.0-6.0 30 Basophils 0.3 % 0.0-2.0 30 Neutrophil Absolute 4.5 x103 1.4-7.0 30 Lymphocytes Absolute 2.6 x103 1.0-3.4 30 Monocyte Absolute 0.5 x103 0.2-1.0 30 Eosinophil Absolute 0.3 x103 0.0-0.5 30 Basophil Absolute 0.0 x103 0.0-0.2 30 Laboratory test finding 07/24/2005 T-4 Free 1.3 ng/dL 0.8-1.8 30 TSH (Thyrotropin) 2.210 uIU/ml 0.350-5.500 30 Comprehensive Metabolic 07/24/2005 Glucose 95 mg/dL 70-100 30 BUN 15 mg/dL 5-21 30 Creatinine, Serum 0.7 mg/dL 0.6-1.2 30 Sodium 142 mmol/L 136-146 30 Potassium 4.3 mmol/L 3.5-5.3 30 Chloride 105 mmol/L 98-110 30 Carbon Dioxide 25 mmol/L 20-32 30 Albumin 4.4 g/dL 3.7-5.6 30 Protein, Total 7.7 g/dL 6.3-8.6 30 Calcium 9.0 mg/dL 8.9-10.7 30 Alkaline Phosphatase 269 U/L High 65-260 30 Sgot (Ast) 13 U/L 10-45 30 SGPT (Alt) 11 U/L 10-40 30 Bilirubin, Total 0.24 mg/dL Low 0.30-1.20 30 1 RESULTS VERIFIED BY REPEAT ANALYSIS 2 consistent w/ previous results 3 1 sst 4 consistent w/ previous results 5 Because ethnic data is not always readily available, this report includes an eGFR for both -Americans and non- Americans. The National Kidney Disease Education Program (NKDEP) does not endorse the use of the MDRD equation for patients that are not between the ages of 18 and 70, are , have extremes of body size, muscle mass, or nutritional status, or are non- or non-. According to the National Kidney Foundation, irrespective of diagnosis, the stage of the disease is based on the level of kidney function: Stage Description GFR(mL/min/1.73 m(2)) 1 Kidney damage with normal or decreased GFR 90 2 Kidney damage with mild decrease in GFR 60-89 3 Moderate decrease in GFR 30-59 4 Severe decrease in GFR 15-29 5 Kidney failure <15 (or dialysis) 6 Reference Range and Interpretation: TnI (ng/mL) Interpretation Less Than 0.03 ng/mL Not supportive of diagnosis of [place] 0.03 - 0.50 ng/mL Indeterminate: suggest serial studies if clinically indicated. Greater than 0.5 ng/mL Consistent with diagnosis of [place] 7 Acute inflammation: >10.00 8 *Ascorbic acid is present which may interfere with detection of blood. 9 Acute inflammation: >10.00 10 Because ethnic data is not always readily available, this report includes an eGFR for both -Americans and non- Americans. The National Kidney Disease Education Program (NKDEP) does not endorse the use of the MDRD equation for patients that are not between the ages of 18 and 70, are , have extremes of body size, muscle mass, or nutritional status, or are non- or non-. According to the National Kidney Foundation, irrespective of diagnosis, the stage of the disease is based on the level of kidney function: Stage Description GFR(mL/min/1.73 m(2)) 1 Kidney damage with normal or decreased GFR 90 2 Kidney damage with mild decrease in GFR 60-89 3 Moderate decrease in GFR 30-59 4 Severe decrease in GFR 15-29 5 Kidney failure <15 (or dialysis) 11 Unable to report test result due to hemolysis. 12 Unable to report test result due to hemolysis. 13 Because ethnic data is not always readily available, this report includes an eGFR for both -Americans and non- Americans. The National Kidney Disease Education Program (NKDEP) does not endorse the use of the MDRD equation for patients that are not between the ages of 18 and 70, are , have extremes of body size, muscle mass, or nutritional status, or are non- or non-. According to the National Kidney Foundation, irrespective of diagnosis, the stage of the disease is based on the level of kidney function: Stage Description GFR(mL/min/1.73 m(2)) 1 Kidney damage with normal or decreased GFR 90 2 Kidney damage with mild decrease in GFR 60-89 3 Moderate decrease in GFR 30-59 4 Severe decrease in GFR 15-29 5 Kidney failure <15 (or dialysis) 14 Acute inflammation: >10.00 15 1 SST 1 LAV 16 >59 mL/min/1.73m2 17 >59 mL/min/1.73m2 Note: Persistent reduction for 3 months or more in an eGFR <60 mL/min/1.73m2 defines CKD. Patients with eGFR values >=60 mL/min/1.73m2 may also have CKD if evidence of persistent proteinuria is present. Additional information may be found at [email or web address] 18 2 SSTS; 1 LAV 19 >59 mL/min/1.73m2 20 >59 mL/min/1.73m2 Note: Persistent reduction for 3 months or more in an eGFR <60 mL/min/1.73m2 defines CKD. Patients with eGFR values >=60 mL/min/1.73m2 may also have CKD if evidence of persistent proteinuria is present. Additional information may be found at [email or web address] 21 2 - SST TUBES; 1 - PURPLE 22 >59 mL/min/1.73m2 23 >59 mL/min/1.73m2 Note: Persistent reduction for 3 months or more in an eGFR <60 mL/min/1.73m2 defines CKD. Patients with eGFR values >=60 mL/min/1.73m2 may also have CKD if evidence of persistent proteinuria is present. Additional information may be found at [email or web address]. 24 Mixed urethral willy present. Repeat may be indicated. 25 1 SST; 1 LAV 26 mL/min/1.73m2 . Normal Function or Mild Renal Disease, if clinically at risk: >or=60 Moderately decreased: 30 - 59 Severely decreased: 15 - 29 Renal Failure: <15 . Please note that the MDRD equation requires an additional adjustment for -Americans (multiply the GFR result by 1.210). . Glomerular Filtration Rate (GFR) is estimated based on the MDRD equation, which assumes a steady state for creatinine (Ella Int Med 139/2 137-149, 2003), as recommended by the National Kidney Disease Education Program in conjunction with the National Institutes of Health and the National Kidney Foundation. . Clinical conditions in which it may be necessary to measure GFR by using clearance methods include extremes of age and body size, severe malnutrition or obesity, diseases of skeletal muscle, paraplegia or quadriplegia, vegetarian diet, rapidly changing kidney function, and calculation of the dose of potentially toxic drugs that are excreted by the kidneys. 27 NEGATIVE FOR GROUP A BETA STREPTOCOCCUS 28 mL/min/1.73m2 . Normal Function or Mild Renal Disease, if clinically at risk: >or=60 Moderately decreased: 30 - 59 Severely decreased: 15 - 29 Renal Failure: <15 . Please note that the MDRD equation requires an additional adjustment for -Americans (multiply the GFR result by 1.210). . Glomerular Filtration Rate (GFR) is estimated based on the MDRD equation, which assumes a steady state for creatinine (Ella Int Med 139/2 137-149, 2003), as recommended by the National Kidney Disease Education Program in conjunction with the National Institutes of Health and the National Kidney Foundation. . Clinical conditions in which it may be necessary to measure GFR by using clearance methods include extremes of age and body size, severe malnutrition or obesity, diseases of skeletal muscle, paraplegia or quadriplegia, vegetarian diet, rapidly changing kidney function, and calculation of the dose of potentially toxic drugs that are excreted by the kidneys. 29 NEGATIVE FOR GROUP A STREP 30 THIS IS A CORRECTED REPORT. ORIGINALLY REPORTED : JUANITO EVANGELISTA. DATE OF 04/27/1946 PROVIDED BY CLIENT Procedures Description No Information Encounters Type Date Location Provider CPT E/M Dx Office Visit 12/14/2017 3:00[facility] [place] [address] G31.9 R13.10 K59.09 Office Visit 05/07/2017 9:00a [facility] Migue Calderon M.D. 23201 K21.9 G31.9 Z00.00 Office Visit 02/19/2017 10:00a [facility] Migue Calderon M.D. 44461 G31.9 Office Visit 05/03/2016 1:40p [facility] Migue Calderon M.D. 14068 R50.9 Office Visit 05/10/2015 3:40p [facility] Migue Calderon M.D. 21713 R50.9 Office Visit 04/26/2015 1:00p [facility] Migue Calderon M.D. 03013 G31.9 K21.9 Office Visit 10/16/2014 3:00p [facility] Migue Calderon M.D. 71229 331.9 Office Visit 10/06/2014 11:20a [facility] Migue Calderon M.D. 15858 331.9 530.0 Office Visit 08/24/2014 3:20p [facility] Migue Calderon M.D. 01626 331.9 Office Visit 04/21/2014 3:00p [facility] Migue Calderon M.D. 41343 550.90 331.9 750.7 Office Visit 01/03/2014 12:30p [facility] Nara De La Cruz M.D. 23850 780.60 Office Visit 12/08/2013 4:00p [facility] Migue Calderon M.D. 25761 331.9 750.7 Office Visit 11/28/2013 1:40p [facility] Migue Calderon M.D. 91670 331.9 Office Visit 11/24/2013 3:20p [facility] Migue Calderon M.D. 87217 564.01 Office Visit 11/21/2013 10:00a [facility] Migue Calderon M.D. 54557 783.21 331.9 Office Visit 11/11/2013 3:40p [facility] Migue Calderon M.D. 78876 783.21 331.9 Office Visit 08/25/2013 3:20p [facility] Migue Calderon M.D. 56686 331.9 Office Visit 07/04/2013 10:20a [facility] Migue Calderon M.D. 89566 331.9 530.81 783.21 Office Visit 05/15/2013 10:10a [facility] Robert Wilson M.D. 89025 680.0 331.9 Office Visit 05/02/2013 10:15a [facility] Janette HammondZenia 40433 680.0 Office Visit 01/03/2013 1:00p [facility] Migue Calderon M.D. 13811 331.9 530.81 V70.0 Office Visit 06/07/2012 1:00p [facility] Migue Calderon M.D. 09489 331.9 530.81 Office Visit 12/08/2011 1:00p [facility] Migue Calderon M.D. 18914 331.9 530.81 V04.81 Office Visit 08/04/2011 9:40a [facility] Cha Aguero M.D. 07845 466.0 380.4 787.3 Office Visit 07/21/2011 3:15p [facility] Janettengozi WallerZenia clemens 09888 331.9 079.99 Office Visit 06/05/2011 1:00p [facility] Migue Calderon M.D. 27018 331.9 530.81 Office Visit 05/23/2011 9:40a [facility] Migue Calderon M.D. 14669 465.9 Office Visit 12/05/2010 1:20p [facility] Migue Calderon M.D. 05027 V04.81 V03.82 V70.0 Office Visit 10/31/2010 3:20p [facility] Josh Barnes M.D. 06688 079.99 Office Visit 07/22/2010 1:00p [facility] Migue Calderon M.D. 97039 331.9 V70.0 Office Visit 06/06/2010 2:40p [facility] Migue Calderon M.D. 15929 465.9 Office Visit 01/21/2010 2:20p [facility] Migue Calderon M.D. 15080 331.9 782.9 Office Visit 10/15/2009 3:10p [facility] Josh Barnes M.D. 69889 079.99 Office Visit 08/06/2009 1:00p [facility] Migue Calderon M.D. 76403 780.60 V70.0 Office Visit 08/02/2009 3:10p [facility] Office Li Hairston M.D. 01528 780.60 Office Visit 05/03/2009 11:00a [facility] Office Migue Calderon M.D. 22934 465.9 Office Visit 01/29/2009 1:00p [facility] Office Migue Calderon M.D. 10615 V04.81 331.9 Office Visit 07/27/2008 2:40p [facility] Migue Calderon M.D. 86012 331.9 Office Visit 05/13/2008 2:40p [facility] Daily Almeida 08038 465.9 MichaelDAmanda Office Visit 04/20/2008 3:00p [facility] Office Migue Calderon M.D. 25939 530.81 331.9 V70.0 Office Visit 01/24/2008 10:40a [facility] Migue Calderon M.D. 25242 465.9 Office Visit 12/30/2007 10:40a [facility] Office Migue Calderon M.D. 24752 331.9 530.81 794.8 V04.81 Office Visit 03/26/2007 5:20p [facility] Migue Calderon M.D. 12081 V74.1 331.9 Office Visit 07/24/2005 3:00p [facility] Office Migue Calderon M.D. 16116 789.07 331.9 794.8 530.81 Plan of Care Future Appointment(s):05/13/2018 2:00 pm - Migue Calderon M.D. at [facility] Ilsdck1403/18/2018 - INOCENCIA Padilla06.9 Acute upper respiratory infection, unspecifiedComments:patient agrees to call if symptoms worsenAllComments:~B_~U_Medication Management~b_~u_ Patient Understands medications he's taking? Yes No Are there Barriers to Adherence? Yes No Has the patient been asked about herbal supplements and therapies, and OTC meds? Yes No
--- NOTE | 2018-03-21 13:54 | UC ---
Respiratory Complaint HPI - HPI Summary HPI Summary: 32 y/o male presents to the urgent care c/o Has not been eating well, URI for 3 weeks, increase in phlegm production. No fever. - History of Current Complaint Stated Complaint: COUGH Time Seen by Provider: 03/21/18 13:52 Hx Obtained From: Family/Pluck Separator - parents and [employer] worker Onset/Duration: Gradual Onset, Lasting Weeks - 3 weeks, Still Present, Worse Since - 1week w/ production of a lot of phlegm Timing: Constant Severity Initially: Mild Severity Currently: Moderate Pain Scale Used: unable to describe Character: Cough: Productive, Sputum Description: - clear Aggravating Factors: Recumbent Position Alleviating Factors: OTC Meds - Sudafed, ibuprofen Associated Signs And Symptoms: Positive: URI, Nasal Congestion, Sinus Discomfort. Negative: Dyspnea, Fever, Chills, Wheezing - Risk Factors Pulmonary Embolism Risk Factors: Negative Cardiac Risk Factors: Negative Pseudomonas Risk Factors: Negative Tuberculosis Risk Factors: Negative - Allergies/Home Medications Allergies/Adverse Reactions: Allergies Allergy/AdvReac Type Severity Reaction Status Date / Time latex Allergy Unknown Verified 03/21/18 13:54 Reaction Details Home Medications: Home Medications Ibuprofen TAB* [Advil TAB*] 200 mg PO DAILY PRN 03/21/18 [History Confirmed 12/28] Multivitamins/Minerals TAB* [Theragran/minerals TAB*] 1 tab PO DAILY 03/21/18 [ History Confirmed 03/21/18] Pseudoephedrine HCL ER TAB* [Sudafed 12 Hour*] 120 mg PO BID PRN 03/21/18 [ History Confirmed 03/21/18] Simethicone TAB* [Mylicon TAB*] 80 mg PO TID PRN 03/21/18 [History Confirmed 12/28] PMH/Surg Hx/FS Hx/Imm Hx - Additional Past Medical History Additional PMH: Herpes labialis and esophageal. Previously Healthy: Yes GI/ History: Gastroesophageal Reflux, Kidney Stones Other GI/ History: gastroperesis, constipation, Neurological History: Seizures Other Neurological History: Metal disability - Surgical History Surgical History: Yes Surgery Procedure, Year, and Place: lssp sp surgury 1996. sharon placement. also lt lower rib removed for cocxcyx fusion - Family History Known Family History: Positive: None - Parents denies FMHX - Social History Occupation: Disabled Lives: Retirement Alcohol Use: None Substance Use Type: None Smoking Status (MU): Never Smoked Tobacco - Immunization History Most Recent Influenza Vaccination: 2012 Most Recent Tetanus Shot: 2007 Most Recent Pneumonia Vaccination: 2010 Review of Systems All Other Systems Reviewed And Are Negative: Yes Constitutional: Positive: Negative, Chills, Other - decreae appetite Skin: Positive: Negative Eyes: Positive: Negative ENT: Positive: Nasal Discharge - yellowish, Sinus Congestion Respiratory: Positive: Cough - productive w/ yellowish phlegm Cardiovascular: Positive: Negative Gastrointestinal: Positive: Negative Genitourinary: Positive: Negative Motor: Positive: Negative Neurovascular: Positive: Negative Musculoskeletal: Positive: Negative Neurological: Positive: Negative Psychological: Positive: Negative Is Patient Immunocompromised?: No Physical Exam - Summary Physical Exam Summary: Vital Signs Reviewed: Yes General: well developed, well nourished MR paredes sitting on the wheelchair w/o any apparent pain or respiratory distress Eyes: Positive: Conjunctiva Clear - PERRLA, EOMI, fundi grossly normal ENT: Positive: Normal ENT inspection, Hearing grossly normal, Pharynx normal, Nasal congestion - edematous and erythematous nasal mucosa, Nasal drainage mild yellowish drainage, TMs normal. Negative: Tonsillar swelling, Tonsillar exudate. Posterior pharynx w/ moderate yellowish phlegm Neck: Positive: Supple, Nontender, No Lymphadenopathy Respiratory: no orthopnea or dyspnea. Able to speak in full sentences, no retractions or accessory muscle use, no tripod position, stridor, or head bobbing. Positive breath sounds bilaterally. mild decrease breath sounds on b/ l lower lung and scattered rhonchi, no wheezes, no crackles or rales. Cardiovascular: Positive: RRR, No Murmur, Pulses Normal, Brisk Capillary Refill Abdomen Description: Positive: Nontender, No Organomegaly, Soft. Negative: CVA Tenderness (R), CVA Tenderness (L) Bowel Sounds: Positive: Present Musculoskeletal Exam: Normal Musculoskeletal: Positive: Strength Intact, ROM Intact, No Edema Neurological Exam: Normal Psychological Exam: Normal Skin Exam: Normal Triage Information Reviewed: Yes Respiratory Course/Dx - Differential Dx/Diagnosis Differential Diagnosis/HQI/PQRI: Bronchitis, Influenza, Laryngitis, Lower Resp Infection, Sinusitis, Other - pneumonia Provider Diagnosis: Community acquired pneumonia Discharge - Sign-Out/Discharge Documenting (check all that apply): Patient Departure - d/c home All imaging exams completed and their final reports reviewed: Yes - Discharge Plan Condition: Stable Disposition: HOME Prescriptions: Levofloxacin TAB* [Levaquin TAB*] 750 mg PO DAILY #7 tab Patient Education Materials: Community Acquired Pneumonia (ED) Referrals: Migue Calderon MD [Primary Care Provider] - 3 Days Additional Instructions: 1-Please take full course of antibiotic to avoid resistance. Starting tomorrow . Pt given today IV fluid w/ Rocephin 1g IV 2- Continue w/ Ibuprofen PO 600mg q6-8hrs prn for pain and fever. Increase fluid intake q4hrs, Provide patient w/ small portions of soft meals q4hrs,. 3-If patient is producing moderate phlegm please help him remove phlegm every time he coughs by leaning him to the side and remove secretions w/ a Q-tip. Pt should sleep flat, encourage sleeping in 2 pillows 4- close observation If symptoms do not improve or worsen and he fever w/ decrease appetite and not drinking fluids please take him to the [facility] ER at [place] further evaluation and treatment. 4-See his PCP in 2-3 days to check your symptoms are improving - Billing Disposition and Condition Condition: STABLE Disposition: Home
[2018-03-21] MEDS ORDERED: cefTRIAXone VIAL(*) 1,000 MG VIAL IVPB ONE ×2 (15:26→15:29)
[2018-03-21] MEDS ORDERED: cefTRIAXone VIAL(*) 1,000 MG VIAL IM ONE (15:52)
[2018-03-21] MEDS: cefTRIAXone VIAL(*) 1,000 MG VIAL IVPB ONE (15:58)
[2018-03-21 16:16] VITALS: BP 109/58
[2018-03-21] MEDS: NS 0.9% 500 ML* 500 ML IV ONE (16:31)
[2018-03-21 18:50] LABS: ABS Basophils 0 10^3/ul (0-0.2); ABS Eosinophils 0.1 10^3/ul (0-0.6); ABS Lymphocytes 2.3 10^3/ul (1.0-4.8); ABS Monocytes 0.7 10^3/ul (0-0.8); ABS Neutrophils 3.2 10^3/ul (1.5-7.7); ABS Nucleated RBC 0 10^3/ul; Eosinophil % 2.4 %; Hematocrit 43 % (42-52); Hemoglobin 14.5 g/dl (14.0-18.0); Lymphocyte % 36.3 %; Mean Corpuscular HGB Conc 34 g/dl (31-36); Mean Corpuscular Hemoglobin 29 pg (27-31); Mean Corpuscular Volume 85 fL (80-94); Nucleated Red Blood Cells % 0.1; Platelet Count 330 10^3/ul (150-450); Red Blood Count 4.98 10^6/ul (4.00-5.40); Red Cell Distribution Width 13 % (10.5-15); White Blood Count 6.3 10^3/ul (3.5-10.8)
[2018-03-21 19:01] LABS: Calcium 9.7 mg/dL (8.6-10.3)
[2018-03-21 19:06] LABS: BUN/Creatinine Ratio 31.1 (8-20); EGFR Non-African American 155.2 (>60)
== END 2018-03-21 17:00 | disposition home or self-care (01) ==
LOC: UCEAST 13:31
DX: J18.9 Pneumonia, unspecified organism (principal)
CPT/HCPCS: 36415; 71046; 80048; 85025; 87651; 96360; 96365; 99212; G0463; J0696

== ENCOUNTER 2018-11-23 12:33 | Emergency (ER) | payer BC, MEDICARE, MEDICAID ==
[2018-11-23 12:50] VITALS: BP 116/68
--- NOTE | 2018-11-23 12:56 | UC ---
Respiratory Complaint HPI - HPI Summary HPI Summary: 33 yo resident of [facility], here today with several days of cough and low grade fever on one occasion. Hx of cerebral palsy with a pneumonia treated March 2018. Appetite is ok, had one episode of emesis x 2 days ago which has not repeated. Another [facility] home has a resident hospitalized with pneumonia (no contact with this home that I can ascertain.). Here with father and Gene, nurse from [facility] home. - History of Current Complaint Stated Complaint: COUGH/FEVER Time Seen by Provider: 11/23/18 12:44 Hx Obtained From: Family/Radio Station Operator Onset/Duration: Gradual Onset, Lasting Days - 2 Timing: Intermittent Episodes Severity Initially: Moderate Severity Currently: Mild Character: Cough: Nonproductive Aggravating Factors: Nothing Alleviating Factors: Upright Position Associated Signs And Symptoms: Positive: Fever - temps to 99.2 max q am x 2, Nasal Congestion - Risk Factors Pulmonary Embolism Risk Factors: Negative Cardiac Risk Factors: Negative Pseudomonas Risk Factors: Negative Tuberculosis Risk Factors: Communal Living - Allergies/Home Medications Allergies/Adverse Reactions: Allergies Allergy/AdvReac Type Severity Reaction Status Date / Time latex Allergy Unknown Verified 11/23/18 12:51 Reaction Details Home Medications: Home Medications Baclofen TAB* [Lioresal TAB*] 5 mg PO BID 11/23/18 [History Confirmed 11/23/18] Ceravite 1 tab PO DAILY 11/23/18 [History Confirmed 11/23/18] PMH/Surg Hx/FS Hx/Imm Hx - Additional Past Medical History Additional PMH: Cerebral palsy, developmental delay, non-verbal Neurological History: Seizures - remte hx, not in years. - Surgical History Surgical History: Yes Surgery Procedure, Year, and Place: lssp sp surgury 1996. sharon placement. also lt lower rib removed for cocxcyx fusion - Family History Known Family History: Positive: None - Father living and healthy. Negative: Cardiac Disease, Hypertension, Diabetes, Renal Disease - Social History Occupation: Disabled Lives: Care Home Alcohol Use: None Substance Use Type: None Smoking Status (MU): Never Smoked Tobacco Have You Smoked in the Last Year: No - Immunization History Most Recent Influenza Vaccination: 2012 Most Recent Tetanus Shot: 2007 Most Recent Pneumonia Vaccination: 2010 Review of Systems All Other Systems Reviewed And Are Negative: Yes Constitutional: Positive: Fever Respiratory: Positive: Cough Gastrointestinal: Positive: Vomiting - x1 Psychological: Positive: Negative Is Patient Immunocompromised?: Yes Physical Exam Triage Information Reviewed: Yes Appearance: Ill-Appearing - looks mildly unwll, congested cough, but does not have tachypnea, indrawing or hypoxia. Eye Exam: Normal Eyes: Positive: Conjunctiva Clear ENT: Positive: Normal ENT inspection Neck: Positive: Supple, Nontender, No Lymphadenopathy Respiratory: Positive: Decreased breath sounds. Negative: Crackles, Rhonchi, Wheezing Cardiovascular: Positive: RRR, No Murmur Neurological Exam: Other - Averbal, increased tone in UE. Skin Exam: Normal Diagnostics - Radiology No standard instances Radiology Interpretation Completed By: Radiologist - Bibasilar infiltrates consistent with pneumonia. Per Dr. Sheikh. Respiratory Course/Dx - Course Course Of Treatment: begin cefdinir for treatment of bibasilar pneumonia. - Differential Dx/Diagnosis Differential Diagnosis/HQI/PQRI: Lower Resp Infection, Other - pneumonia. Provider Diagnosis: Bilateral pneumonia Discharge ED - Sign-Out/Discharge Documenting (check all that apply): Patient Departure All imaging exams completed and their final reports reviewed: Yes - Discharge Plan Condition: Stable Disposition: HOME Prescriptions: Cefdinir 250mg/5 ml* [Omnicef 250 mg/5 ml*] 6 ml PO BID #120 ml Patient Education Materials: Pneumonia (ED) Referrals: Migue Calderon MD [Primary Care Provider] - Additional Instructions: Begin use of cefdinir 300mg = 6 ml twice daily for treatment of pneumonia diagnosed on chest xray. Monitor for any increase in fever or difficulty breathing; a low grade fever could be present through tomorrow. Follow up with Dr. Calderon next week for re-evaluation. - Billing Disposition and Condition Condition: STABLE Disposition: Home
== END 2018-11-23 13:56 | disposition home or self-care (01) ==
LOC: UCEAST 12:33
DX: J18.9 Pneumonia, unspecified organism (principal); Z91.040 Latex allergy status
CPT/HCPCS: 71046; 99212; G0463

== ENCOUNTER 2021-11-30 15:01 | Inpatient (IN) ==
[2021-11-30] MEDS ORDERED: Lactated Ringers 1000 ml BAG 1,000 ML IV ONE ×2 (15:29→19:15)
[2021-11-30 16:42] LABS: ABS Eosinophils 0.1 10^3/ul (0-0.6); ABS Lymphocytes 0.5 10^3/ul (1.0-4.8); ABS Monocytes 0.4 10^3/ul (0-0.8); ABS Neutrophils 2.9 10^3/ul (1.5-7.7); Eosinophil % 1.3 %; Hematocrit 39 % (42-52); Hemoglobin 13.3 g/dL (14.0-18.0); Mean Corpuscular HGB Conc 34 g/dL (31-36); Mean Corpuscular Hemoglobin 29 pg (27-31); Mean Corpuscular Volume 85 fL (80-94); Mean Platelet Volume 7.6 fL (7.4-10.4); Nucleated Red Blood Cells % 0.1; Platelet Count 206 10^3/uL (150-450); Red Blood Count 4.62 10^6 /uL (4.18-5.48); Red Cell Distribution Width 13 % (10-15); White Blood Count 3.9 10^3/uL (3.5-10.8)
[2021-11-30] MEDS ORDERED: Acetaminophen IV 1 GM/100ML 1,000 MG/100 ML BAG IV ONE (17:15)
[2021-11-30 17:38] LABS: Albumin 4.5 g/dL (3.2-5.2); Albumin/Globulin Ratio 1.6 (1-3); C Reactive Protein 27.17 mg/L (<8.01); Calcium 9.2 mg/dL (8.6-10.3); Globulin 2.8 g/dL (2-4); Potassium 4.2 mmol/L (3.5-5.0); Total Bilirubin 0.3 mg/dL (0.2-1.0); Total Protein 7.3 g/dL (6.4-8.9); eGFR CKD-EPI 123.5 (>60)
[2021-11-30] MEDS ORDERED: Ondansetron 4 mg VIAL 2 MG/ML 2 ml VIAL IV PRN (19:43)
[2021-11-30] MEDS ORDERED: Glycerin ADULT 2.4 gm SUPP PR PRN (20:34)
[2021-11-30] MEDS: Enoxaparin 40 MG/0.4 ML SYR SUBCUT SCH (21:54)
[2021-12-01 05:56] LABS: ABS Lymphocytes 1.2 10^3/ul (1.0-4.8); ABS Monocytes 0.6 10^3/ul (0-0.8); ABS Neutrophils 2.6 10^3/ul (1.5-7.7); Eosinophil % 0.2 %; Hematocrit 34 % (42-52); Hemoglobin 11.8 g/dL (14.0-18.0); Lymphocyte % 26.3 %; Mean Corpuscular HGB Conc 34 g/dL (31-36); Mean Corpuscular Hemoglobin 29 pg (27-31); Mean Corpuscular Volume 85 fL (80-94); Mean Platelet Volume 7.8 fL (7.4-10.4); Nucleated Red Blood Cells % 0.1; Platelet Count 167 10^3/uL (150-450); Red Blood Count 4.06 10^6 /uL (4.18-5.48); Red Cell Distribution Width 13 % (10-15); White Blood Count 4.4 10^3/uL (3.5-10.8)
[2021-12-01 06:34] LABS: Calcium 6.5 mg/dL (8.6-10.3); Potassium 3.3 mmol/L (3.5-5.0)
[2021-12-01] MEDS ORDERED: KCL 10 MEQ/50 ML IVPREMIX 10 MEQ/50 ML BAG IV ONE (07:21)
[2021-12-01] MEDS: Polyethylene Glycol 3350 17 GM PACKET PO SCH (08:37)
[2021-12-01] MEDS ORDERED: Lactated Ringers 1000 ml BAG 1,000 ML IV ONE (10:38)
[2021-12-01] MEDS ORDERED: KCL 20 MEQ/100 ML IVPREMIX 20 MEQ/100 ML BAG IV ONE (18:34)
[2021-12-01] MEDS: Lactated Ringers 1000 ml BAG 1,000 ML IV SCH (20:48)
[2021-12-01] MEDS: Enoxaparin 40 MG/0.4 ML SYR SUBCUT SCH (20:49)
[2021-12-02] MEDS: Lactated Ringers 1000 ml BAG 1,000 ML IV SCH ×2 (04:19→11:00)
[2021-12-02 06:49] LABS: ABS Lymphocytes 1.7 10^3/ul (1.0-4.8); ABS Monocytes 0.6 10^3/ul (0-0.8); ABS Neutrophils 3.7 10^3/ul (1.5-7.7); Eosinophil % 0.3 %; Hematocrit 37 % (42-52); Hemoglobin 12.7 g/dL (14.0-18.0); Lymphocyte % 28.6 %; Mean Corpuscular HGB Conc 34 g/dL (31-36); Mean Corpuscular Hemoglobin 29 pg (27-31); Mean Corpuscular Volume 85 fL (80-94); Nucleated Red Blood Cells % 0.1; Platelet Count 158 10^3/uL (150-450); Red Blood Count 4.37 10^6 /uL (4.18-5.48); Red Cell Distribution Width 13 % (10-15); White Blood Count 6.1 10^3/uL (3.5-10.8)
[2021-12-02 07:05] LABS: Calcium 8.7 mg/dL (8.6-10.3); Magnesium 1.9 mg/dL (1.9-2.7); Potassium 3.9 mmol/L (3.5-5.0); eGFR CKD-EPI 136.4 (>60)
[2021-12-02] MEDS: Polyethylene Glycol 3350 17 GM PACKET PO SCH (10:55)
[2021-12-02] MEDS: Enoxaparin 40 MG/0.4 ML SYR SUBCUT SCH (19:22)
[2021-12-03 06:38] LABS: ABS Lymphocytes 1.6 10^3/ul (1.0-4.8); ABS Monocytes 0.6 10^3/ul (0-0.8); ABS Neutrophils 3.8 10^3/ul (1.5-7.7); Eosinophil % 0.5 %; Hematocrit 38 % (42-52); Hemoglobin 13.1 g/dL (14.0-18.0); Lymphocyte % 26.2 %; Mean Corpuscular HGB Conc 35 g/dL (31-36); Mean Corpuscular Hemoglobin 29 pg (27-31); Mean Corpuscular Volume 83 fL (80-94); Mean Platelet Volume 7.9 fL (7.4-10.4); Platelet Count 186 10^3/uL (150-450); Red Blood Count 4.58 10^6 /uL (4.18-5.48); Red Cell Distribution Width 13 % (10-15)
[2021-12-03 07:07] LABS: Calcium 8.8 mg/dL (8.6-10.3); Potassium 3.8 mmol/L (3.5-5.0); eGFR CKD-EPI 134.9 (>60)
[2021-12-03] MEDS: Polyethylene Glycol 3350 17 GM PACKET PO SCH (10:34)
[2021-12-03 13:37] VITALS: BP 102/63
== END 2021-12-03 13:22 | disposition home or self-care (01) | DRG 871 ==
LOC: EDHOLD 15:01 → ED 15:01 → MEDTELE 12-01 16:34 → SUATTDRO 12-01 18:41
PROVIDERS: ADMIT Student in an Organized Health Care Education/Training Program; ATTEND Pediatrics